=== PATIENT | male | born 1985 | race Caucasian/White ===

== ENCOUNTER 2016-07-12 | Emergency (ER) | payer OTHER ==
[~2016-07-12] VITALS: Ht 190.5 cm; Wt 110.9 kg
[~2016-07-12] MED LIST: ALDACTONE 100M100 MG PO; AMOXICILLIN 50500 MG; CATAPRES0.2 MG PO; DAZIDOX10 MG PO; DESYREL 50MG50 MG PO; DILAUDID4 MG PO; DUO-KAPS1 CAP PO; EXALGO12 MG PO; EXALGO16 MG; FLEXERIL 1010 MG/TAB PO; HCTZ 25MG TAB25 MG PO; LAMICTAL 25MG T25 MG PO; LOPRESSOR 225 MG/TAB PO; LOPRESSOR I5 MG/5 ML PO; LORTAB 5/500 501 TAB PO; LUNESTA 1MG TAB1 MG PO; MINIPRESS2 MG PO; NAPROSYN500 MG PO; NEURONTIN300 MG PO; NEURONTIN300 MG/CAP PO; NO HOME MEDICATIONS; NORCO 325 MG-51 TAB PO; NORMODYNE200 MG PO; NORVASC 10MG10 MG PO; NUCYNTA50 MG PO; PERCOCET 325 MG1 TA2 PO; PERCOCET 325 MG1 TAB PO; PERCOCET 5/321 UDTAB PO; PHENERGAN 25 TA25 MG PO; PHENERGAN W/CO120 ML PO; PREDNISONE10 MG PO; PRINZIDE 12.5 M1 TAB PO; PROMETHAZINE12.5 M5 PO; SINGULAIR 110 MG/TAB PO; SKELAXIN 800MG800 MG PO; SOMA350 MG PO; TOPROL XL 50MG50 MG PO; VALIUM 5MG T5 MG/TAB PO; VALIUM5 MG PO; ZESTRIL 10MG10 MG PO; ZESTRIL40 MG PO; ZITHROMAX 250M250 MG PO; ZOLOFT 100MG100 MG PO
[2016-07-12 00:01] VITALS: TEMP 98
[2016-07-12] MEDS ORDERED: DEPAKOTE ER 50500 MG PO (00:06)
[2016-07-12] MEDS ORDERED: ULTRAM 50MG TAB50 MG PO (00:58)
[2016-07-12] MEDS ORDERED: PERCOCET 325 MG1 TA2 PO (00:58)
[2016-07-12 01:39] VITALS: BP 109/95; PULSE 89
== END 2016-07-12 01:40 | disposition home or self-care (01) ==
LOC: COL.ER
DX: M25.562 Pain in left knee (principal)
CPT/HCPCS: J1170; J3010

== ENCOUNTER 2016-07-15 11:00 | Outpatient (RCR) | payer OTHER ==
[~2016-07-15 11:00] MED LIST changes: +DEPAKOTE ER 50500 MG PO; +ULTRAM 50MG TAB50 MG PO
== END 2016-10-13 | disposition home or self-care (01) ==
LOC: WSPT
DX: S80.02XS Contusion of left knee, sequela (principal); X58.XXXS Exposure to other specified factors, sequela

== ENCOUNTER → 2016-09-03 | Outpatient (CLI) | payer BC ==
[~2016-09-03] MED LIST changes: +ATIVAN 0.50.5 MG/TAB PO
== END ==
LOC: BHSO 09:11
DX: F43.10 Post-traumatic stress disorder, unspecified (principal)

== ENCOUNTER → 2016-12-03 | Outpatient (CLI) | payer BC | LOC: BHSO 08:46 | DX: F43.10 Post-traumatic stress disorder, unspecified (principal) ==

== ENCOUNTER 2017-01-29 16:22 | Emergency (ER) | payer BC ==
[~2017-01-29] VITALS: Ht 193 cm; Wt 108.6 kg
[~2017-01-29 16:22] MED LIST changes: -ATIVAN 0.50.5 MG/TAB PO
[2017-01-29 16:25] VITALS: TEMP 97.8
[2017-01-29] MEDS ORDERED: ATIVAN 0.50.5 MG/TAB PO (16:32)
[2017-01-29 17:08] LABS: BASO # 0.2 (0.0-0.2); EOS # 0.1 (0.0-0.7); EOS % 0.8 % (0-4.0); GRAN # 11.9 (1.4-6.5); GRAN % 79.8 % (42.2-75.2); HEMATOCRIT 38.5 % (42.0-52.0); HEMOGLOBIN 14.1 g/dl (13.5-18.0); LYMPH # 1.7 (1.2-3.4); LYMPH % 11.3 % (20.0-51.0); MEAN CELL VOLUME 87 fl (80.0-100.0); MEAN CORPUSCULAR HEMOGLOBIN 32 pg (27.0-31.0); MEAN CORPUSCULAR HGB CONC 37 g/dl (33.0-37.0); MONO % 6.7 % (1.7-9.3); PLATELET COUNT 215 K/mm3 (130-400); RED BLOOD COUNT 4.41 M/mm3 (4.20-5.60); REDCELL DISTRIBUTION WIDTH-CV 11.8 % (11.5-14.5); WHITE BLOOD COUNT 14.9 K/mm3 (4.8-10.8)
[2017-01-29 17:32] LABS: ALANINE AMINOTRANSFERASE 37 U/L (21-72); ALBUMIN 4.4 gm/dL (3.5-5.0); ALKALINE PHOSPHATASE 61 U/L (50-136); ANION GAP 13 mmol/L (7-16); BILIRUBIN,TOTAL 0.6 mg/dL (0.0-1.0); BLOOD UREA NITROGEN 22 mg/dL (9-20); CALCIUM 9.3 mg/dL (8.4-10.2); CARBON DIOXIDE 24 mmol/L (22-30); CHLORIDE 99 mmol/L (98-107); CREATININE, serum 1.91 mg/dL (0.66-1.25); GLUCOSE 135 mg/dL (74-106); LIPASE 123 U/L (23-300); POTASSIUM 4.3 mmol/L (3.4-5.0); SODIUM 136 mmol/L (137-145); TOTAL PROTEIN 7.3 gm/dL (6.4-8.2)
[2017-01-29 17:33] LABS: C-REACTIVE PROTEIN < 0.5 mg/dL (0.0-0.9)
[2017-01-29] MEDS ORDERED: PHENERGAN 25 TA25 MG PO (21:28)
[2017-01-29 21:43] VITALS: BP 114/58; PULSE 82
== END 2017-01-29 21:46 | disposition home or self-care (01) ==
LOC: COL.ER 16:22
PROVIDERS: Emergency Medicine
DX: E86.0 Dehydration (principal); R19.7 Diarrhea, unspecified; R10.13 Epigastric pain; R11.10 Vomiting, unspecified; I10 Essential (primary) hypertension
CPT/HCPCS: J2405; J2550; J7030

== ENCOUNTER → 2017-03-04 | Outpatient (CLI) | payer BC ==
[~2017-03-04] MED LIST changes: +ATIVAN 0.50.5 MG/TAB PO
== END ==
LOC: BHSO 09:09
DX: F43.10 Post-traumatic stress disorder, unspecified (principal)

== ENCOUNTER → 2017-07-03 | Outpatient (CLI) | payer BC | LOC: BHSO 10:29 | DX: F41.1 Generalized anxiety disorder (principal) | CPT/HCPCS: G0463 ==

== ENCOUNTER 2017-08-16 18:52 | Emergency (ER) | payer BC ==
[2017-08-16 18:52] VITALS: TEMP 97
[2017-08-16 19:06] LABS: HEMATOCRIT 43.7 % (42.0-52.0); HEMOGLOBIN 15.5 g/dl (13.5-18.0); MEAN CELL VOLUME 90 fl (80.0-100.0); MEAN CORPUSCULAR HEMOGLOBIN 32 pg (27.0-31.0); MEAN CORPUSCULAR HGB CONC 36 g/dl (33.0-37.0); MEAN PLATELET VOLUME 10.2 fl (7.4-10.4); PLATELET COUNT 258 K/mm3 (130-400); RED BLOOD COUNT 4.84 M/mm3 (4.20-5.60)
[2017-08-16 19:13] LABS: BAND 4 % (0-10); EOSINOPHIL 8 % (0-4); LYMPHOCYTE 48 % (20.0-51.0); NEUTROPHILS 36 % (42.0-75.2); PLATELET ESTIMATE NORMAL (NORMAL)
[2017-08-16 19:17] VITALS: BP 127/72; PULSE 109
[2017-08-16 19:17] LABS: ALANINE AMINOTRANSFERASE 143 U/L (21-72); ALBUMIN 4.1 gm/dL (3.5-5.0); ALCOHOL(ethanol),MEDICAL < 10 mg/dL; ALKALINE PHOSPHATASE 61 U/L (50-136); ANION GAP 12 mmol/L (7-16); AST,SGOT 150 U/L (15-37); BILIRUBIN,TOTAL 0.6 mg/dL (0.0-1.0); BLOOD UREA NITROGEN 22 mg/dL (9-20); CALCIUM 8.9 mg/dL (8.4-10.2); CARBON DIOXIDE 24 mmol/L (22-30); CHLORIDE 103 mmol/L (98-107); CREATININE, serum 1.08 mg/dL (0.66-1.25); GLUCOSE 117 mg/dL (74-106); LIPASE 192 U/L (23-300); SODIUM 139 mmol/L (137-145); TOTAL PROTEIN 7.2 gm/dL (6.4-8.2)
[2017-08-16 19:18] LABS: POTASSIUM 3.6 mmol/L (3.4-5.0)
== END 2017-08-16 19:19 | disposition short-term general hospital (02) ==
LOC: COL.ER 18:52
PROVIDERS: Emergency Medicine
DX: S00.03XA Contusion of scalp, initial encounter (principal); R40.2432 Glasgow coma scale score 3-8, at arrival to emergency department; Z86.79 Personal history of other diseases of the circulatory system; V23.4XXA Motorcycle driver injured in collision with car, pick-up truck or van in traffic accident, initial encounter
CPT/HCPCS: J0330; J2704

== ENCOUNTER 2017-12-03 10:00 | Outpatient (RCR) | payer BC | END 2018-01-27 | disposition home or self-care (01) | LOC: WSST | DX: S06.5X9S Traumatic subdural hemorrhage with loss of consciousness of unspecified duration, sequela (principal); Z87.820 Personal history of traumatic brain injury | CPT/HCPCS: G8990-GP; G8992-GP ==

== ENCOUNTER 2018-01-07 19:03 | Emergency (ER) | payer BC ==
[~2018-01-07] VITALS: Ht 193 cm; Wt 113.6 kg
[2018-01-07 19:09] VITALS: BP 169/96; TEMP 98.3
[2018-01-07 19:53] LABS: BASO # 0.1 (0.0-0.2); EOS # 0.7 (0.0-0.7); EOS % 6.9 % (0-4.0); GRAN # 5.6 (1.4-6.5); GRAN % 55.2 % (42.2-75.2); HEMATOCRIT 39.3 % (42.0-52.0); HEMOGLOBIN 13.9 g/dl (13.5-18.0); LYMPH # 2.7 (1.2-3.4); LYMPH % 26.3 % (20.0-51.0); MEAN CELL VOLUME 91 fl (80.0-100.0); MEAN CORPUSCULAR HEMOGLOBIN 32 pg (27.0-31.0); MEAN CORPUSCULAR HGB CONC 35 g/dl (33.0-37.0); MEAN PLATELET VOLUME 9.4 fl (7.4-10.4); MONO % 9.5 % (1.7-9.3); PLATELET COUNT 230 K/mm3 (130-400); RED BLOOD COUNT 4.32 M/mm3 (4.20-5.60); REDCELL DISTRIBUTION WIDTH-CV 11.4 % (11.5-14.5)
[2018-01-07 20:04] LABS: COLLECTION METHOD CLEAN CATCH
[2018-01-07 20:08] LABS: ACETAMINOPHEN < 10 ug/mL (10-30); ALANINE AMINOTRANSFERASE 25 U/L (21-72); ALBUMIN 4.1 gm/dL (3.5-5.0); ALCOHOL(ethanol),MEDICAL < 10 mg/dL; ALKALINE PHOSPHATASE 75 U/L (50-136); ANION GAP 11 mmol/L (7-16); AST,SGOT 21 U/L (15-37); BILIRUBIN,TOTAL 0.4 mg/dL (0.0-1.0); BLOOD UREA NITROGEN 25 mg/dL (9-20); CALCIUM 9.3 mg/dL (8.4-10.2); CARBON DIOXIDE 26 mmol/L (22-30); CHLORIDE 102 mmol/L (98-107); CREATININE, serum 0.95 mg/dL (0.66-1.25); GLUCOSE 108 mg/dL (74-106); POTASSIUM 4.4 mmol/L (3.4-5.0); SALICYLATE < 1.0 mg/dL; SODIUM 139 mmol/L (137-145); TOTAL PROTEIN 7.5 gm/dL (6.4-8.2)
[2018-01-07 20:09] LABS: MUCOUS Present /lpf; PH 5 (5-8); SQUAMOUS EPITHELIAL 0-2 /hpf; URINE APPEARANCE Clear; URINE BACTERIA None Seen /hpf; URINE BILIRUBIN Negative (NEGATIVE); URINE BLOOD Negative (NEGATIVE); URINE COLOR Straw; URINE GLUCOSE Negative (NEGATIVE); URINE KETONE Trace (NEGATIVE); URINE LEUKOCYTE ESTERASE Negative (NEGATIVE); URINE NITRATE Negative (NEGATIVE); URINE PROTEIN(semi-quant) Negative (NEGATIVE); URINE RBC 0-2 /hpf; URINE UROBILINOGEN Negative (NEGATIVE)
[2018-01-07 20:19] LABS: TRICYCLIC ANTIDEPRESS URINE NEGATIVE
[2018-01-07 22:05] VITALS: PULSE 101
== END 2018-01-07 22:05 | disposition home or self-care (01) ==
LOC: COL.ER 19:03
PROVIDERS: Emergency Medicine
DX: F32.9 Major depressive disorder, single episode, unspecified (principal); F43.10 Post-traumatic stress disorder, unspecified